=== PATIENT | female | born 1995 | race Caucasian/White ===

== ENCOUNTER → 2020-10-30 17:22 | Outpatient (CLI) | payer OTHER, MEDICAID, SELFPAY ==
[2020-10-30 17:41] LABS: Appearance Urine UA CLEAR; Bilirubin Urine UA NEGATIVE (NEGATIVE); Color Urine UA YELLOW; Glucose Urine UA NEGATIVE (Negative); Ketones Urine UA NEGATIVE (NEGATIVE); Leukocyte Esterase Urine UA NEGATIVE (NEGATIVE); Nitrite Urine UA NEGATIVE (Negative); Occult Blood Urine UA NEGATIVE (Negative); Protein Urine UA NEGATIVE (Negative); Urobilinogen Urine UA 0.2 E.U./dL (0.2)
[2020-10-30 18:06] LABS: pH Urine UA 6.5 (4.5-8.0)
[2020-10-30 18:30] LABS: Basophils Absolute Auto 0 /uL (0-100); Basophils Percent Auto 0.3 % (0-2); Eosinophils Absolute Auto 100 /uL (0-450); Eosinophils Percent Auto 0.8 % (2-4); Hematocrit 27.6 % (36-46); Hemoglobin 8.7 g/dL (12.0-16.0); Lymphocytes Absolute Auto 1400 /uL (1100-4500); Lymphocytes Percent Auto 14.2 % (25-40); Mean Corpuscular HGB Conc 31.6 % (30-36); Mean Corpuscular Hemoglobin 20.2 PG (26-34); Monocytes Absolute Auto 600 /uL (0-900); Monocytes Percent Auto 6.2 % (3-14); Neutrophils Absolute Auto 7800 /uL (1500-7000); Neutrophils Percent Auto 78.5 % (50-75); Platelet Count 363 X10^3/uL (150-400); Red Blood Cell Count 4.32 X10^6/uL (4.0-5.2); Red Cell Distribution Width 19.6 % (11.6-14.8); White Blood Cell Count 9.9 X10^3/uL (4.5-11.0)
[2020-10-30 18:31] LABS: Add Manual Diff / Slide Review SLIDE REVIEW
[2020-10-30 19:43] LABS: Microcytosis 1+
[2020-10-31 08:09] LABS: RPR Screen Non Reactive (Non Reactive)
[2020-10-31 11:22] LABS: Varicella IgG Antibody 1006 index (Immune >165)
[2020-10-31 17:04] LABS: Hepatitis B Surface Antigen NEGATIVE s/c (NEGATIVE); Rubella Antibody IgG 8.4 IU/mL (>15)
[2020-10-31 17:17] LABS: HIV 1 & 2 Ab/Ag 4th Gen Combo NEGATIVE (NEGATIVE); Hep C Virus Ab w/Reflex Quant NEGATIVE s/c (NEGATIVE)
[2020-11-01 19:36] LABS: AFP, Serum 30.9 ng/mL (.); Estriol, Free 0.67 ng/mL (.); Inhibin A, Dimeric 155.85 pg/mL (.); Maternal Ethnicity Caucasian (.); Maternal Weight 149 lbs (.); Number of Fetuses No (.); OSBR Risk 1 IN 10000 (.); Results Report (.); Test Results *Screen Negative* (.); hCG, MoM 0.56 (.); hCG, Serum 19473 mIU/mL (.)
== END ==
PROVIDERS: Referring Provider Obstetrics & Gynecology; Visit Provider Obstetrics & Gynecology
DX: Z34.82 Encounter for supervision of other normal pregnancy, second trimester (principal); Z82.0 Family history of epilepsy and other diseases of the nervous system
CPT/HCPCS: 36415; 80055; 81003; 82105; 82677; 84702; 86336; 86787; 86803; 86850; 86900; 86901; 87086; 87389

== ENCOUNTER → 2021-01-17 10:38 | Outpatient (CLI) | payer OTHER, MEDICAID, SELFPAY ==
[2021-01-17 13:36] LABS: Hemoglobin 10.4 g/dL (12.0-16.0)
[2021-01-17 14:01] LABS: GTT (PREG) 1 Hour PP 50gm Dose 142 mg/dL (76-139)
== END ==
PROVIDERS: Referring Provider Obstetrics & Gynecology; Visit Provider Obstetrics & Gynecology
DX: Z34.82 Encounter for supervision of other normal pregnancy, second trimester (principal); Z3A.27 27 weeks gestation of pregnancy
CPT/HCPCS: 36415; 82950; 85014; 85018

== ENCOUNTER → 2021-02-05 09:10 | Outpatient (CLI) | payer OTHER, MEDICAID, SELFPAY ==
[2021-02-05 10:21] LABS: Glucose Fasting Gestational 87 mg/dL (76-95)
[2021-02-05 12:03] LABS: Glucose 1 Hour Gest 142 mg/dL (76-180)
[2021-02-05 12:13] LABS: Glucose 2 Hour Gest 130 mg/dL (76-155)
[2021-02-05 12:25] LABS: Glucose Tol Interp,Gestational INTERPRETATION
[2021-02-05 13:09] LABS: Glucose 3 Hour Gest 74 mg/dL (76-140)
== END ==
PROVIDERS: PCP Family Medicine; Referring Provider Obstetrics & Gynecology; Visit Provider Obstetrics & Gynecology
DX: O99.810 Abnormal glucose complicating pregnancy (principal)
CPT/HCPCS: 36415; 82951; 82952

== ENCOUNTER 2022-12-25 09:22 | Day surgery (SDC) | payer OTHER, MEDICAID, SELFPAY ==
[2022-12-23 10:21] VITALS: BMI 25.7
[2022-12-25] VITALS (8 sets, daily range): BP systolic 101–125; BP diastolic 57–80; PULSE 58–87; RESP 10–17; TEMP 36.2–36.6; O2SAT 97–100; BMI 25.7
--- NOTE | 2022-12-25 | PATH_ITS ---
[facility] Accession Number: [id number] No. of containers..01 Tissue . 01 Material submitted: . fallopian tube - BILATERAL FALLOPIAN TUBES . 01 Diagnosis: Bilateral Fallopian Tubes, Bilateral Salpingectomy: Fragments of bilateral fallopian tubes without diagnostic abnormalities. MRV 01/05/2023 1821 Local . 01 Electronically signed: . Lissette Patiño MD, Pathologist NPI- [id number] . 01 Gross description: . The specimen is received in formalin labeled with the patient's name, , and bilateral fallopian tubes, and consists of two unoriented fimbriated fallopian tubes measuring 7.2 x 0.6 cm and 4.2 x 0.8 cm. Both have rodriguez, wrinkled serosa with no cystic structures grossly identified. Sectioning reveals unremarkable stellate lumens. Sections to include one-half of bisected fimbriae and cross sections are submitted as follows: A1: Longer fallopian tube. A2: [place] fallopian tube. ([id number]) /FRR 12/30/2022 0401 Local . 01 Pathologist provided ICD-10: Z30.2 . 01 CPT . 409810 Specimen Comment: A courtesy copy of this report has been sent to [phone] Performed at: [facility] [address] [place] [address] [address], [place], [place] [id number] MD Michele Gaona MD Phone: [phone]
--- NOTE | 2022-12-25 09:34 | SUR.OPER ---
Lithotomy on padded OR bed, head on pillow, arms secured on padded arm boards at <90 degrees abduction. Legs secured in padded yellow fins stirrups.
[2022-12-25] MEDS: LACTATED RINGERS 1,000 ML 42 ML IV (09:37)
[2022-12-25] MEDS: BUPIVACAINE 0.5% (PF) 30 ML, EPINEPHrine 0.15 MG INJ (11:03)
--- NOTE | 2022-12-25 11:12 | P.OP_ITS ---
Operative Date/Time/Diagnoses Date of procedure: 12/25/22 Time of procedure: 10:20 Pre-op diagnosis: Request for sterilization Post-op diagnosis: same Procedure & Clinicians Procedure: Procedures Operation Date: 12/25/22 10:45 Actual Procedure Side Surgeon p Laparoscopic Salpingectomy Bilateral Kostas Walker MD Indications: Caitlin is a 27-year-old who presented 10/23/2022 to again discuss sterilization.? She has expressed interest in the past but for a variety of reasons was unable to go through with it.? She also would like to have an injection of Depo-Provera today to prevent before she can have her sterilization procedure performed.? Patient counseled regarding alternatives, r isks, benefits, and potential complications associated with laparoscopic bilateral salpingectomy.? She understands that this procedure is 1 which will result in her permanently and irreversibly being unable to bear children without benefit of assisted reproductive technology.? She further understands that it is a procedure which does carry with it a small risk of failure (1-06/999) and should a failure occur, an ectopic gestation would be highly likely.? With full understanding of the above, the patient executed an HHS form 687 10/23/2022.? She presents today for her scheduled procedure.? Surgeon: Kostas Walker Anesthesia Type: General Operative Notes Findings: Normal pelvis. Appendix and upper abdomen are also normal laparoscopic visualization. Closure Type: primary Specimen(s): left tube and right tube Estimated blood loss (mL): 5 Blood products transfused: none Procedure in detail: With the patient under satisfactory general anesthesia in the modified dorsal lithotomy position, the perineum, vagina, and abdomen were prepped and draped for IUD removal and laparoscopic bilateral salpingectomy. A pre-surgical safety time-out was then taken in accordance with [facility] OR protocols. The umbilicus was then infiltrated with 0.5% Marcaine with epinephrine and 1 cm vertical incision was made in the inferior aspect of the umbilicus. Veress needle was used to insufflate the abdomen with carbon dioxide and once appropriately insufflated, 5 mm bladeless trocar and sleeve were inserted through the incision. Proper placement of the sleeve was confirmed with laparoscopic visualization and insufflation of the abdomen continued. A 2nd and 3rd 5 mm laparoscopic port were placed in the right and left mid quadrants using a similar technique and using a 3 puncture technique, the abdomen and pelvis were visualized with the findings as noted above. The distal aspect of the left fallopian tube was then grasped with a grasping forceps and using a Power Seal device, fimbria ovarica was coagulated and divided the dissection using the Power Seal continuing across the mesosalpinx to the cornua where the base fallopian tube was coagulated and divided. The left fallopian tube was then removed through one of the ports and submitted pathologic specimen. Attention was then turned to the right adnexa with distal tube grasped with a grasping forcep. The Power Seal device was then used to coagulate fimbria ovarica and the dissection was carried across the mesosalpinx to the cornua where the fallopian tube on the right side was amputated at the cornua following coagulation proximal tube the Power Seal device. Pelvis was inspected and there were no abnormalities noted following bilateral salpingectomy. The pneumoperitoneum was then vented and the ports removed from the abdominal wall. Port incisions were then closed with 4-0 Monocryl using inverted interrupted stitches and skin glue was applied. Appropriate dressings were then applied, patient was awakened, and transferred to the PACU for a period of observation after having tolerated the procedure well. Complications: none Post-operative Condition: stable Disposition: PACU Plan for aftercare: Routine postoperative care.
[2022-12-25] MEDS: OXYCODONE IR 5 MG TABLET PO (11:38)
== END 2022-12-25 12:14 | disposition home or self-care (01) ==
PROVIDERS: PCP Family Medicine; Referring Provider Obstetrics & Gynecology; Visit Provider Obstetrics & Gynecology
PROC: 0UT74ZZ Resection of Bilateral Fallopian Tubes, Percutaneous Endoscopic Approach (ICD-10-PCS; CPT 58661; principal; 2022-12-25 10:45)
DX: Z30.2 Encounter for sterilization (principal)
CPT/HCPCS: 58661; J0171; J0330; J1885; J2250; J2405; J2704; J3010